=== PATIENT | male | born 1990 | race Two or more races ===

== ENCOUNTER 2017-05-26 22:48 | Emergency (ER) | payer MEDICAID ==
[~2017-05-26] VITALS: Ht 177.8 cm; Wt 113.0 kg
[2017-05-27] MEDS ORDERED: ALBUTEROL SULFATE 2.5 MG/0.5 ML NEB SOLUTION NEB ONE (00:30)
[2017-05-27] MEDS ORDERED: IPRATROPIUM BROMIDE 0.5 MG/2.5 ML NEB SOLUTION NEB ONE (00:30)
[2017-05-27] MEDS ORDERED: CYCLOBENZAPRINE HCL 10 MG TABLET PO ONE (00:30)
[2017-05-27] MEDS: KETOROLAC TROMETHAMINE 60 MG/2 ML VIAL IM ONE ×2 (00:33→00:36)
[2017-05-27] MEDS ORDERED: KETOROLAC TROMETHAMINE 10 MG TABLET PO ONE (00:45)
[2017-05-27] MEDS ORDERED: 0.9% SODIUM CHLORIDE 5 ML NEB SOLUTION NEB ONE (01:03)
[2017-05-27 01:33] VITALS: BP 159/99
== END 2017-05-27 01:35 | disposition home or self-care (01) ==
LOC: EMS 22:51
DX: S39.92XA Unspecified injury of lower back, initial encounter (principal); M53.3 Sacrococcygeal disorders, not elsewhere classified; J20.9 Acute bronchitis, unspecified; M54.2 Cervicalgia; R05 Cough; F17.210 Nicotine dependence, cigarettes, uncomplicated; E66.9 Obesity, unspecified; V43.62XA Car passenger injured in collision with other type car in traffic accident, initial encounter; Y93.89 Activity, other specified; Y92.410 Unspecified street and highway as the place of occurrence of the external cause; Y99.8 Other external cause status
CPT/HCPCS: 94640; 99283; 99406; J1885; J7613